=== PATIENT | female | born 1960 | race Caucasian/White ===

== ENCOUNTER 2017-02-25 14:14 | Observation (INO) ==
[2017-02-25] MEDS ORDERED: 0.9 % Sodium Chloride 1,000 ML IVC ONE (14:30)
--- NOTE | 2017-02-25 14:36 | Emergency Department Note ---
Disposition Clinical Impression: Urinary tract infection Disposition: Admitted As Inpatient Condition: Good Time of Disposition: 15:52 Female Urogenital HPI - General Chief complaint: ED Urogenital-Female Stated complaint: UTI, been on oral abx Time Seen by Provider: 02/25/17 14:20 Source: patient Mode of arrival: ambulatory Limitations: no limitations Nursing Notes Reviewed: Yes Vital Signs Reviewed: Yes - History of Present Illness HPI Narrative: Patient presents to the ED with the chief complaint of urinary tract infection. states that she has had a urinary tract infection since October 2016. She has seen her primary care physician, Dr. Elkins and has also seen her OB/ TAN ROOM SUPERVISOR, Dr. Bush. States that she has been on multiple rounds of oral antibiotics and still has urinary tract and section symptoms. She states that her ROOFING CONTRACTOR called her yesterday after urinalysis and told her to go to the ER to be admitted for IV antibiotics. She went to her primary care physician who told her to come to the ER. We did not receive a call from her ROOFING CONTRACTOR or primary care physician about this patient. However, the patient insists that she was sent over for admission. She states that none of her symptoms are new and this is been ongoing but they are continuing to get worse. She has pain that is radiating to her lower back bilaterally. She has decreased urine that is dark in color. She also has dysuria and urgency. No fever or chills. Has been having headaches off and on as well as feeling shaky, but this is no change from her baseline. No chest pain or shortness of breath. Some nausea but no vomiting. Does have some lower abdominal pain. She has had multiple abdominal surgeries for perforated colon and cholecystectomy. States that it is not the type of pain. - Related Data Home Medications Medication Instructions Recorded Confirmed Advair 250-50 Diskus 08/04/15 08/04/15 Albuterol Sulfate 08/04/15 08/04/15 Gabapentin 08/04/15 08/04/15 Inhalers 08/04/15 08/04/15 Valium 08/04/15 08/04/15 Zoloft 08/04/15 08/04/15 Previous Rx's Medication Instructions Recorded PredniSONE [Prednisone] 50 mg PO DAILY #5 tablet 08/04/15 Guaifenesin [Mucinex] 1,200 mg PO BID #14 tab.er.12h 11/27/16 Levofloxacin [Levaquin] 500 mg PO DAILY #5 tablet 11/27/16 Promethazine/Codeine 5 ml PO Q6HR PRN #60 ml 11/27/16 [Phenergan/Codeine] Allergies Allergy/AdvReac Type Severity Reaction Status Date / Time cephalexin Allergy Rash Verified 08/04/15 12:23 Loracarbef [From Lorabid] Allergy Rash Verified 08/04/15 12:23 All systems ED: reviewed and negative except as stated. Gastrointestinal: Reports: abdominal pain, nausea. Denies: vomiting, diarrhea Genitourinary: Reports: urgency, dysuria, frequency. Denies: discharge Musculoskeletal: Reports: back pain Integumentary: Denies: rash Neurological: Reports: headache Endocrine: Reports: fatigue Past Medical History - Past Medical History Attestation: Yes The following information was validated with the patient. Source: patient Medical history: Reports: COPD, hyperlipidemia Surgical history: Reports: herniorrhaphy, hysterectomy, other - Social History Smoking Status: Current every day smoker Smokeless Tobacco Status: No Alcohol use: Reports: none Drug use: Reports: none Physical Exam - General Limitations: no limitations General appearance: alert, in no apparent distress - Head Head exam: atraumatic, normocephalic, normal inspection - Eye Eye exam: Present: normal appearance, PERRL, EOMI - ENT ENT exam: mucous membranes dry - Neck Neck exam: Present: normal inspection, full ROM, trachea midline - Chest Chest inspection: Present: normal inspection, symmetric chest wall rise - Respiratory Respiratory exam: Present: normal lung sounds bilaterally - Cardiovascular Cardiovascular exam: Present: regular rate, normal rhythm, normal heart sounds - Abdominal Exam Abdominal exam: Present: soft, tenderness, distention, diminished bowel sounds. Absent: guarding, rebound Abdominal tenderness: Present: diffuse (lower quadrants), mild, moderate - Extremities Exam Extremities exam: Present: normal inspection, full ROM, normal capillary refill. Absent: tenderness, pedal edema - Back Exam Back exam: Present: normal inspection, full ROM. Absent: tenderness - Neurological Exam Neurological exam: Present: alert, oriented X3 - Psychiatric Psychiatric exam: Present: anxious - Skin Skin exam: Present: warm, dry, intact, normal color Course Course Narrative: 56 year old female presenting with recurrent UTI. Multiple failed outpatient antibiotics. States her ROOFING CONTRACTOR and primary care physician sent her over to be admitted that we have not received any treatment medication from them. We will check labs, urinalysis and CT her belly due to distention and tenderness. Disposition pending. Urine his back and does appear to be infected. Spoke with hospitalist for admission and they will determine antibiotics. I am very underwhelmed with the patient's exam and history. However, per her physician's request. We will admit her for observation and IV antibiotics Vital Signs Temperature 98.4 F 02/25/17 14:17 Pulse Rate 100 02/25/17 14:17 Respiratory Rate 14 02/25/17 14:17 Blood Pressure 138/86 02/25/17 14:17 O2 Sat by Pulse Oximetry 98 02/25/17 14:17 Temperature 98.4 F 02/25/17 14:17 Pulse Rate 100 02/25/17 14:17 Respiratory Rate 16 02/25/17 15:40 Blood Pressure 122/82 02/25/17 15:40 O2 Sat by Pulse Oximetry 98 02/25/17 14:17 Oxygen Delivery Oxygen Delivery Room Air Urogenital-Female - Lab Data Result diagrams: 02/25/17 14:40 02/25/17 14:40 Lab Results 02/25/17 02/25/17 02/25/17 Range/Units 14:40 14:40 14:40 WBC 13.2 H (4.3-11.1) K/mcL RBC 4.29 (3.82-4.97) M/mcL Hgb 13.2 (11.5-15.4) g/dL Hct 39.9 (35.3-44.9) % MCV 93.0 (83.0-100.0) fL MCH 30.8 (28.0-33.3) pg MCHC 33.1 (31.6-35.5) g/dL RDW 12.8 (11.5-14.5) % Plt Count 213 (140-400) K/mcL MPV 10.7 (9.4-12.4) fL Immature Gran % 0.5 (0-4) % Seg Neutrophils % 74.0 % Lymphocytes % 19.6 % Monocytes % 5.1 % Eosinophils % 0.6 % Basophils % 0.2 % Neutrophils # 9.7 H (1.6-8.9) K/mcL Lymphocytes # 2.6 (0.6-4.6) K/mcL Monocytes # 0.7 (0.0-1.3) K/mcL Eosinophils # 0.1 (0.0-0.6) K/mcL Basophils # 0.0 (0.0-0.2) K/mcL Sodium 137 (136-145) mEq/L Potassium 3.3 L (3.5-4.5) mEq/L Chloride 106 (98-109) mEq/L Carbon Dioxide 22 (19-29) mEq/L BUN 8 (7-20) mg/dL Creatinine 0.89 (0.57-1.11) mg/dL Est GFR ( Amer) > 60 (> 60) Est GFR (Non-Af Amer) > 60 (> 60) BUN/Creatinine Ratio 9 (6-26) Glucose 138 H (70-99) mg/dL Calculated Osmolality 285 (280-300) Calcium 9.5 (8.6-10.8) mg/dL Total Bilirubin 0.4 (0.2-1.2) mg/dL Direct Bilirubin 0.1 (0.0-0.5) mg/dL Indirect Bilirubin 0.3 (0.0-1.2) mg/dL AST 14 (5-34) Units/L ALT 12 (0-55) Units/L Alkaline Phosphatase 72 (38-126) Units/L Serum Total Protein 6.5 (6.0-8.3) g/dL Albumin 4.2 (3.5-5.0) g/dL Globulin 2.3 L (2.4-3.5) g/dL Albumin/Globulin Ratio 1.8 (1.1-2.2) Lipase 51 (8-78) Units/L Urine Color (Yellow) Urine Clarity (Clear) Urine pH (5.0-8.0) pH Units Ur Specific [place] (1.010-1.025) Urine Protein (Neg-Trace) mg/dL Urine Glucose (UA) (Normal) mg/dL Urine Ketones (Negative) mg/dL Urine Blood (Negative) Urine Nitrite (Negative) Urine Bilirubin (Negative) Urine Urobilinogen (Normal) mg/dL Ur Leukocyte Esterase (Negative) Urine Microscopic RBC (0-3) per hpf Urine Microscopic WBC (0-3) per hpf Ur Squamous Epith Cells (None-Few) per lpf Urine Bacteria (None-Few) per hpf Hyaline Casts (None-Few) per lpf Ur Culture Indicated? (NO) 02/25/17 Range/Units 14:42 WBC (4.3-11.1) K/mcL RBC (3.82-4.97) M/mcL Hgb (11.5-15.4) g/dL Hct (35.3-44.9) % MCV (83.0-100.0) fL MCH (28.0-33.3) pg MCHC (31.6-35.5) g/dL RDW (11.5-14.5) % Plt Count (140-400) K/mcL MPV (9.4-12.4) fL Immature Gran % (0-4) % Seg Neutrophils % % Lymphocytes % % Monocytes % % Eosinophils % % Basophils % % Neutrophils # (1.6-8.9) K/mcL Lymphocytes # (0.6-4.6) K/mcL Monocytes # (0.0-1.3) K/mcL Eosinophils # (0.0-0.6) K/mcL Basophils # (0.0-0.2) K/mcL Sodium (136-145) mEq/L Potassium (3.5-4.5) mEq/L Chloride (98-109) mEq/L Carbon Dioxide (19-29) mEq/L BUN (7-20) mg/dL Creatinine (0.57-1.11) mg/dL Est GFR ( Amer) (> 60) Est GFR (Non-Af Amer) (> 60) BUN/Creatinine Ratio (6-26) Glucose (70-99) mg/dL Calculated Osmolality (280-300) Calcium (8.6-10.8) mg/dL Total Bilirubin (0.2-1.2) mg/dL Direct Bilirubin (0.0-0.5) mg/dL Indirect Bilirubin (0.0-1.2) mg/dL AST (5-34) Units/L ALT (0-55) Units/L Alkaline Phosphatase (38-126) Units/L Serum Total Protein (6.0-8.3) g/dL Albumin (3.5-5.0) g/dL Globulin (2.4-3.5) g/dL Albumin/Globulin Ratio (1.1-2.2) Lipase (8-78) Units/L Urine Color Yellow (Yellow) Urine Clarity Clear (Clear) Urine pH 6.5 (5.0-8.0) pH Units Ur Specific [place] 1.006 L (1.010-1.025) Urine Protein Negative (Neg-Trace) mg/dL Urine Glucose (UA) Normal (Normal) mg/dL Urine Ketones Negative (Negative) mg/dL Urine Blood Negative (Negative) Urine Nitrite Positive A (Negative) Urine Bilirubin Negative (Negative) Urine Urobilinogen Normal (Normal) mg/dL Ur Leukocyte Esterase Large H (Negative) Urine Microscopic RBC 0-3 (0-3) per hpf Urine Microscopic WBC 15-30 H (0-3) per hpf Ur Squamous Epith Cells None Seen (None-Few) per lpf Urine Bacteria Many H (None-Few) per hpf Hyaline Casts None Seen (None-Few) per lpf Ur Culture Indicated? YES A (NO)
--- NOTE | 2017-02-25 14:36 | Emergency Department Note ---
Disposition Clinical Impression: Urinary tract infection Disposition: Admitted As Inpatient Condition: Good General Adult HPI - General Chief complaint: ED Urogenital-Female Stated complaint: UTI, been on oral abx Time Seen by Provider: 02/25/17 14:20 Source: patient Limitations: no limitations - History of Present Illness Pain Scale: 7 - Related Data Home Medications Medication Instructions Recorded Confirmed CloNIDine Patch [Catapres-TTS] 0.1 mg TD QWEEK 02/25/17 02/25/17 Diazepam [Valium] 5 mg PO BID 02/25/17 02/25/17 Levothyroxine [Synthroid] 88 mcg PO 0630 02/25/17 02/25/17 [place] Carbonate 300 mg PO HS 02/25/17 02/25/17 Ropinirole HCl [Requip] 2 mg PO HS 02/25/17 02/25/17 TraZODone 50 mg PO HS 02/25/17 02/25/17 Valacyclovir [Valtrex] 500 mg PO DAILY 02/25/17 02/25/17 Allergies Allergy/AdvReac Type Severity Reaction Status Date / Time cephalexin Allergy Swelling Verified 02/25/17 15:58 of Lip/Tongue/Throat Loracarbef [From Lorabid] Allergy Rash Verified 02/25/17 15:58 Past Medical History - Past Medical History Medical history: Reports: COPD, hyperlipidemia Surgical history: Reports: herniorrhaphy, hysterectomy, other - Social History Smoking Status: Current every day smoker Smokeless Tobacco Status: No Alcohol use: Reports: none Drug use: Reports: none Physical Exam - General Limitations: no limitations General appearance: alert, in no apparent distress Course Vital Signs Temperature 98.4 F 02/25/17 14:17 Pulse Rate 100 02/25/17 14:17 Respiratory Rate 14 02/25/17 14:17 Blood Pressure 138/86 02/25/17 14:17 O2 Sat by Pulse Oximetry 98 02/25/17 14:17 Temperature 97.4 F L 02/25/17 16:19 Pulse Rate 67 02/25/17 16:19 Respiratory Rate 18 02/25/17 16:19 Blood Pressure 109/69 02/25/17 16:19 O2 Sat by Pulse Oximetry 96 02/25/17 16:30 Oxygen Delivery Oxygen Delivery Room Air Medical Decision Making - Lab Data Result diagrams: 02/25/17 14:40 02/25/17 14:40 Lab Results 02/25/17 02/25/17 02/25/17 Range/Units 14:40 14:40 14:40 WBC 13.2 H (4.3-11.1) K/mcL RBC 4.29 (3.82-4.97) M/mcL Hgb 13.2 (11.5-15.4) g/dL Hct 39.9 (35.3-44.9) % MCV 93.0 (83.0-100.0) fL MCH 30.8 (28.0-33.3) pg MCHC 33.1 (31.6-35.5) g/dL RDW 12.8 (11.5-14.5) % Plt Count 213 (140-400) K/mcL MPV 10.7 (9.4-12.4) fL Immature Gran % 0.5 (0-4) % Seg Neutrophils % 74.0 % Lymphocytes % 19.6 % Monocytes % 5.1 % Eosinophils % 0.6 % Basophils % 0.2 % Neutrophils # 9.7 H (1.6-8.9) K/mcL Lymphocytes # 2.6 (0.6-4.6) K/mcL Monocytes # 0.7 (0.0-1.3) K/mcL Eosinophils # 0.1 (0.0-0.6) K/mcL Basophils # 0.0 (0.0-0.2) K/mcL Sodium 137 (136-145) mEq/L Potassium 3.3 L (3.5-4.5) mEq/L Chloride 106 (98-109) mEq/L Carbon Dioxide 22 (19-29) mEq/L BUN 8 (7-20) mg/dL Creatinine 0.89 (0.57-1.11) mg/dL Est GFR ( Amer) > 60 (> 60) Est GFR (Non-Af Amer) > 60 (> 60) BUN/Creatinine Ratio 9 (6-26) Glucose 138 H (70-99) mg/dL Calculated Osmolality 285 (280-300) Calcium 9.5 (8.6-10.8) mg/dL Total Bilirubin 0.4 (0.2-1.2) mg/dL Direct Bilirubin 0.1 (0.0-0.5) mg/dL Indirect Bilirubin 0.3 (0.0-1.2) mg/dL AST 14 (5-34) Units/L ALT 12 (0-55) Units/L Alkaline Phosphatase 72 (38-126) Units/L Serum Total Protein 6.5 (6.0-8.3) g/dL Albumin 4.2 (3.5-5.0) g/dL Globulin 2.3 L (2.4-3.5) g/dL Albumin/Globulin Ratio 1.8 (1.1-2.2) Lipase 51 (8-78) Units/L Urine Color (Yellow) Urine Clarity (Clear) Urine pH (5.0-8.0) pH Units Ur Specific [place] (1.010-1.025) Urine Protein (Neg-Trace) mg/dL Urine Glucose (UA) (Normal) mg/dL Urine Ketones (Negative) mg/dL Urine Blood (Negative) Urine Nitrite (Negative) Urine Bilirubin (Negative) Urine Urobilinogen (Normal) mg/dL Ur Leukocyte Esterase (Negative) Urine Microscopic RBC (0-3) per hpf Urine Microscopic WBC (0-3) per hpf Ur Squamous Epith Cells (None-Few) per lpf Urine Bacteria (None-Few) per hpf Hyaline Casts (None-Few) per lpf Ur Culture Indicated? (NO) 02/25/17 Range/Units 14:42 WBC (4.3-11.1) K/mcL RBC (3.82-4.97) M/mcL Hgb (11.5-15.4) g/dL Hct (35.3-44.9) % MCV (83.0-100.0) fL MCH (28.0-33.3) pg MCHC (31.6-35.5) g/dL RDW (11.5-14.5) % Plt Count (140-400) K/mcL MPV (9.4-12.4) fL Immature Gran % (0-4) % Seg Neutrophils % % Lymphocytes % % Monocytes % % Eosinophils % % Basophils % % Neutrophils # (1.6-8.9) K/mcL Lymphocytes # (0.6-4.6) K/mcL Monocytes # (0.0-1.3) K/mcL Eosinophils # (0.0-0.6) K/mcL Basophils # (0.0-0.2) K/mcL Sodium (136-145) mEq/L Potassium (3.5-4.5) mEq/L Chloride (98-109) mEq/L Carbon Dioxide (19-29) mEq/L BUN (7-20) mg/dL Creatinine (0.57-1.11) mg/dL Est GFR ( Amer) (> 60) Est GFR (Non-Af Amer) (> 60) BUN/Creatinine Ratio (6-26) Glucose (70-99) mg/dL Calculated Osmolality (280-300) Calcium (8.6-10.8) mg/dL Total Bilirubin (0.2-1.2) mg/dL Direct Bilirubin (0.0-0.5) mg/dL Indirect Bilirubin (0.0-1.2) mg/dL AST (5-34) Units/L ALT (0-55) Units/L Alkaline Phosphatase (38-126) Units/L Serum Total Protein (6.0-8.3) g/dL Albumin (3.5-5.0) g/dL Globulin (2.4-3.5) g/dL Albumin/Globulin Ratio (1.1-2.2) Lipase (8-78) Units/L Urine Color Yellow (Yellow) Urine Clarity Clear (Clear) Urine pH 6.5 (5.0-8.0) pH Units Ur Specific [place] 1.006 L (1.010-1.025) Urine Protein Negative (Neg-Trace) mg/dL Urine Glucose (UA) Normal (Normal) mg/dL Urine Ketones Negative (Negative) mg/dL Urine Blood Negative (Negative) Urine Nitrite Positive A (Negative) Urine Bilirubin Negative (Negative) Urine Urobilinogen Normal (Normal) mg/dL Ur Leukocyte Esterase Large H (Negative) Urine Microscopic RBC 0-3 (0-3) per hpf Urine Microscopic WBC 15-30 H (0-3) per hpf Ur Squamous Epith Cells None Seen (None-Few) per lpf Urine Bacteria Many H (None-Few) per hpf Hyaline Casts None Seen (None-Few) per lpf Ur Culture Indicated? YES A (NO) Attestation Statement - Attestation Attestation: I examined this patient and my medical decision-making was reviewed with the CALL CENTER SUPPORT REPRESENTATIVE/PA/Advanced Practice Nurse/Resident Physician. I agree with the documented findings, disposition and treatment plan as described except to the extent set forth below. Face to face time provided Patient presents the emergency department with urinary symptoms. Recent urine culture grew out Escherichia coli. Culture and sensitivity reviewed by me. Patient does not appear toxic on exam. Plan of care and management discussed by me with the resident physician Dr. Curtis
[2017-02-25 14:52] LABS: Basophils % 0.2 %; Eosinophils # 0.1 K/mcL (0.0-0.6); Eosinophils % 0.6 %; Hematocrit 39.9 % (35.3-44.9); Hemoglobin 13.2 g/dL (11.5-15.4); Immature Granulocytes % 0.5 % (0-4); Lymphocytes # 2.6 K/mcL (0.6-4.6); Lymphocytes % 19.6 %; Mean Corpuscular HGB Conc 33.1 g/dL (31.6-35.5); Mean Corpuscular Hemoglobin 30.8 pg (28.0-33.3); Mean Platelet Volume 10.7 fL (9.4-12.4); Monocytes # 0.7 K/mcL (0.0-1.3); Monocytes % 5.1 %; Neutrophils # 9.7 K/mcL (1.6-8.9); Platelet Count 213 K/mcL (140-400); Red Blood Count 4.29 M/mcL (3.82-4.97); Red Cell Distribution Width 12.8 % (11.5-14.5)
[2017-02-25 14:55] LABS: Bilirubin,Urine Negative (Negative); Blood,Urine Negative (Negative); Clarity,Urine Clear (Clear); Color,Urine Yellow (Yellow); Glucose,Urine (UA) Normal (Normal); Ketones,Urine Negative (Negative); Leukocyte Esterase,Urine Large (Negative); Nitrite,Urine Positive (Negative); PH,Urine 6.5 pH Units (5.0-8.0); Protein,Urine Negative (Neg-Trace); Specific Gravity,Urine 1.006 (1.010-1.025); Urobilinogen,Urine Normal (Normal)
[2017-02-25 14:57] LABS: Bacteria,Urine Many per hpf (None-Few); Hyaline Casts,Urine None Seen per lpf (None-Few); RBC,Urine 0-3 per hpf (0-3); Squamous Epithelial Cell,Urine None Seen per lpf (None-Few); WBC,Urine 15-30 per hpf (0-3)
[2017-02-25] MEDS ORDERED: *HR* Morphine 2 MG/ML SYRINGE IVP ONE (14:58)
[2017-02-25] MEDS ORDERED: Ondansetron 4 MG/2 ML VIAL IVP ONE (14:58)
[2017-02-25 15:05] LABS: Alanine Aminotransferase 12 Units/L (0-55); Albumin 4.2 g/dL (3.5-5.0); Albumin/Globulin Ratio 1.8 (1.1-2.2); Alkaline Phosphatase 72 Units/L (38-126); Aspartate Amino Transferase 14 Units/L (5-34); BUN/Creatinine Ratio 9 (6-26); Bilirubin,Direct 0.1 mg/dL (0.0-0.5); Bilirubin,Indirect 0.3 mg/dL (0.0-1.2); Bilirubin,Total 0.4 mg/dL (0.2-1.2); Blood Urea Nitrogen 8 mg/dL (7-20); Calcium 9.5 mg/dL (8.6-10.8); Carbon Dioxide 22 mEq/L (19-29); Chloride 106 mEq/L (98-109); Globulin 2.3 g/dL (2.4-3.5); Glucose 138 mg/dL (70-99); Osmolality,Calculated 285 (280-300); Potassium 3.3 mEq/L (3.5-4.5); Sodium 137 mEq/L (136-145); Total Protein 6.5 g/dL (6.0-8.3); eGFR For African Americans > 60 (> 60); eGFR For Non-African Americans > 60 (> 60)
[2017-02-25] MEDS ORDERED: Naloxone 0.4 MG/ML INJ IVP PRN (21:19)
--- NOTE | 2017-02-25 21:29 | Internal Med History&Physical ---
<Rivas Bridges - Last Filed: 02/25/17 22:51> Date of Encounter: 02/25/17 Time of Encounter: 21:19 Assessment and Plan (1) Urinary tract infection Current visit: Yes Status: Chronic -UA shows nitrates, white blood cells, culture pending. -We will admit and treat with IV antibiotic Unysyn. Patient last sensitivity susceptible to Unasyn. Patient states throat swelling adverse reaction to cephalosporins. Patient denies reaction to Unasyn. States that she has taken medication previously without any adverse reaction. -CT abd/pelvis looks like bladder is distended. Will order bladder scan. Consider in and out cath. -4 UA cultures since 12/12 all showing E Coli. -Patient admits to flank pain. Not very impressive on physical exam. no fever, white blood cells on UA. Pyelonephritis low on Differential. -Patient states she "has a 2 tubes coming off of her L kidney", discovered on ultrasound many years ago. Cant find said utrasound in [facility] Records. Will order to evaluate possible reason for recurrent UTI. Plan -Regular diet -No IV fluids unless patient not drinking enough water -IV Abx, unasyn q6h -Bladder scan -Retroperitoneal Ultrasound Qualifiers: Urinary tract infection type: acute cystitis Hematuria presence: without hematuria Qualified Code(s): N30.00 - Acute cystitis without hematuria (2) Suprapubic abdominal pain Current visit: Yes Status: Acute -Patient saying excruciating suprapubic and back pain. -Reevaluated patient later in the night. Patient was noted to be bending/ storing away her personal items in the room drawer, talking on the phone at the same time, not in apparent distress. Ambulatory without assistance. 4 min later sat on edge of bed stating that she was in excruciating pain and that ibuprofen hasn't helped and morphine helps -From my observation she does not need narcotics for pain relief. Cont ibuprofen. Internal Medicine - H&P: HPI Chief complaint: Dysuria for 5 months Admitted From: Emergency Dept Plans for Post Hospital Care: Home History of present illness: Ms. Duran is a 56 year old female, PMH bipolar, depression, "double ureter", admitted for UTI. She states that Dr. Bush, an OBGYN at [facility] called her up personally and told her to be admitted for UTI. Patient complains of superpubic pain, dysuria, hesitancy for the past 5 months. Has received oral antibiotics within the past month to treat her UTI, but does not recall the name. Started to have flank pain that began a left side 3 weeks ago, now noticed on the right side. Admits to nausea and headache. Denies blurry vision, fever, vomiting, chest pain, shortness of breath, problems with her bowels. Denies ultrasound for kidney evaluation. Past Med Surg Social Fam HX - Past Medical History Medical history: COPD, hyperlipidemia, thyroid disease Psychiatric history: bipolar, depression - Past Surgical History Surgical History: cholecystectomy, herniorrhaphy, hysterectomy, other (hernia x5 over in RUQ. Mesh placed. ) - Social History Smoking Status: Current every day smoker Smokeless Tobacco Status: No Alcohol use: none Drug use: none Internal Medicine - H&P: Meds CloNIDine Patch [Catapres-TTS] 0.1 mg TD QWEEK 02/25/17 [History] Diazepam [Valium] 5 mg PO BID 02/25/17 [History] Levothyroxine [Synthroid] 88 mcg PO 0630 02/25/17 [History] [place] Carbonate 300 mg PO HS 02/25/17 [History] Ropinirole HCl [Requip] 2 mg PO HS 02/25/17 [History] TraZODone 50 mg PO HS 02/25/17 [History] Valacyclovir [Valtrex] 500 mg PO DAILY 02/25/17 [History] Allergies cephalexin Allergy (Verified 02/25/17 15:58) Swelling of Lip/Tongue/Throat Loracarbef [From Lorabid] Allergy (Verified 02/25/17 15:58) Rash All Systems PM: A 10-system review of systems was performed and is negative for pertinent findings except as documented above in the HPI. - Constitutional Constitutional: no chills, no excessive sweating, no fatigue, no fever(s) - EENT Eyes: no change in vision, no discharge, no pain, no photophobia - Cardiovascular Cardiovascular ROS IM: no chest pain, no diaphoresis, no dyspnea, no lightheadedness, no palpitations, no syncope - Respiratory Respiratory: no cough, no dyspnea, no wheezing, no excessive phlegm production - Gastrointestinal Gastrointestinal: as per HPI - Genitourinary Genitourinary: dysuria, flank pain, urinary hesitancy, no hematuria, no urinary frequency, no urinary incontinence, no urinary urgency - Neurological Neurological ROS: tremor(s), no confusion, no convulsions, no focal weakness, no numbness, no tingling - Constitutional Vitals: Temp Pulse Resp BP Pulse Ox 98.3 F 62 16 106/69 98 02/25/17 19:14 02/25/17 19:14 02/25/17 19:14 02/25/17 19:14 02/25/17 19:14 General appearance: Present: A&O X 3, no acute distress, answers questions appropriately - Head Head exam: Present: atraumatic, normocephalic - Eye Eye exam: Present: PERRL, conjuntiva pink, sclera anicteric Pupils: Present: PERRL - Neck Neck exam general surgery: Present: supple, trachea midline. Absent: lymphadenopathy - Respiratory Respiratory exam: Present: CTAB. Absent: accessory muscle use, rales, rhonchi, wheezes - Cardiovascular Cardiovascular exam: Present: RRR, +S1, +S2. Absent: diastolic murmur, gallop, rubs, systolic murmur - GI/Abdominal GI/Abdominal exam: Present: distended (mildly ), tenderness, no peritoneal signs. Absent: firm, guarding - Other Additional findings: Very Mild flank tenderness on L. not appreciated on R. Internal Med - H&P Results - Labs CBC & Chem 7: 02/25/17 14:40 02/25/17 14:40 <Kary Collier - Last Filed: 02/26/17 03:53> Date of Encounter: 02/26/17 Internal Medicine - H&P: HPI History of present illness: Ms. Duran is a 56 year old female All Systems PM: A 10-system review of systems was performed and is negative for pertinent findings except as documented above in the HPI. - Constitutional Vitals: Temp Pulse Resp BP Pulse Ox 97.6 F 61 20 131/68 96 02/26/17 00:21 02/26/17 00:21 02/26/17 00:21 02/26/17 00:21 02/26/17 00:21 Internal Med - H&P Results - Labs CBC & Chem 7: 02/25/17 14:40 02/25/17 14:40
[2017-02-25] MEDS: Ondansetron 4 MG/2 ML VIAL IVP PRN (21:36)
[2017-02-25] MEDS: Ibuprofen 400 MG TABLET PO PRN (21:39)
[2017-02-25] MEDS: Potassium Chloride Elixir 20 MEQ/15 ML UDC PO SCH (21:57)
[2017-02-25] MEDS ORDERED: CloNIDine Patch 0.1 MG PATCH (WEEKLY) TD SCH (22:45)
[2017-02-25] MEDS: diazePAM 5 MG TABLET PO SCH (23:06)
[2017-02-25] MEDS: Lithium Carbonate 300 MG CAPSULE PO SCH (23:06)
[2017-02-25] MEDS: traZODone 50 MG TABLET PO SCH (23:06)
[2017-02-25] MEDS: Ampicillin/Sulbactam 3,000 MG in 0.9 % Sodium Chloride Mini Bag 100 ML IVPB SCH (23:13)
[2017-02-26] MEDS: *HR* Heparin 5,000 UNIT/ML VIAL SQ SCH ×2 (06:49→18:12)
[2017-02-26] MEDS: Ampicillin/Sulbactam 3,000 MG in 0.9 % Sodium Chloride Mini Bag 100 ML IVPB SCH ×4 (06:50→23:32)
[2017-02-26] MEDS: valACYclovir 500 MG TABLET PO SCH (08:51)
[2017-02-26] MEDS: diazePAM 5 MG TABLET PO SCH ×2 (08:51→21:04)
[2017-02-26] MEDS: Potassium Chloride Elixir 20 MEQ/15 ML UDC PO SCH (08:51)
[2017-02-26] MEDS: Ondansetron 4 MG/2 ML VIAL IVP PRN ×3 (10:58→21:03)
[2017-02-26] MEDS: Ibuprofen 400 MG TABLET PO PRN (11:00)
[2017-02-26] MEDS ORDERED: Ibuprofen 400 MG TABLET PO PRN (11:17)
[2017-02-26] MEDS: Acetaminophen 325 MG TABLET PO PRN (13:42)
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
[2017-02-26] MEDS: *HR* HYDROcodone/Acet 5/325 mg TABLET PO PRN ×2 (17:05→23:33)
--- NOTE | 2017-02-26 18:20 | Urology - Consult Note ---
Date of Encounter: 02/26/17 Time of Encounter: 18:18 - Assessment and Plan (1) Recurrent UTI (urinary tract infection) Current Visit: Yes Status: Acute Assessment and plan: will need to complete current course of abx as last culture basically olson sensitive. will check bladder scan after next void. will f/u tomorrow with bladder scan results. Urology CN:HPI Consult date: 02/26/17 Reason for consult Urology: Other (recurrent uti) Requesting physician: Elisa Veloz History of present illness: Daksha is a 56 y/o female with history of multiple culture positive uti's. The patient was tx'd as an outpt and failed tx and thus was brought into the hospital for iv abx. The patient states that she is feeling better. STill with some left lower back discomfort. patient has had a tony/bso. some question of a duplicated system on the left side, but no hydro is noted on the recent CT scan. Past Med Surg Social Fam HX - Past Medical History Medical history: COPD, hyperlipidemia, thyroid disease Psychiatric history: bipolar, depression - Past Surgical History Surgical History: cholecystectomy, herniorrhaphy, hysterectomy, other (hernia x5 over in RUQ. Mesh placed. ) - Social History Smoking Status: Current every day smoker Smokeless Tobacco Status: No Alcohol use: none Drug use: none Medications and Allergies CloNIDine Patch [Catapres-TTS] 0.1 mg TD QWEEK 02/25/17 [History] Diazepam [Valium] 5 mg PO BID 02/25/17 [History] Levothyroxine [Synthroid] 88 mcg PO 0630 02/25/17 [History] [place] Carbonate 300 mg PO HS 02/25/17 [History] Ropinirole HCl [Requip] 2 mg PO HS 02/25/17 [History] TraZODone 50 mg PO HS 02/25/17 [History] Valacyclovir [Valtrex] 500 mg PO DAILY 02/25/17 [History] Sertraline [Zoloft] 100 mg PO DAILY 02/26/17 [History] Allergies cephalexin Allergy (Verified 02/25/17 15:58) Swelling of Lip/Tongue/Throat Loracarbef [From Lorabid] Allergy (Verified 02/25/17 15:58) Rash Review of Systems - Constitutional no chills - EENT Nose, mouth and throat: no dizziness - Cardiovascular no chest pain - Respiratory no cough - Genitourinary Genitourinary: as per HPI - Neurological other (+ tremors) Exam Initial Vital Signs Temp Pulse Resp BP Pulse Ox 98.4 F 100 14 138/86 98 02/25/17 14:17 02/25/17 14:17 02/25/17 14:17 02/25/17 14:17 02/25/17 14:17 - General physical appearance Present: well developed - Eyes Present: PERRL - ENT Present: normal nares - Neck Present: no masses - Respiratory Present: normal respiratory effort - Cardiovascular Cardiovascular exam IM: RRR - Abdomen Abdomen: Present: soft Urology Results - Labs 02/25/17 14:40 02/25/17 14:40 Abnormal lab results WBC 13.2 K/mcL (4.3-11.1) H 02/25/17 14:40 Neutrophils # 9.7 K/mcL (1.6-8.9) H 02/25/17 14:40 Potassium 3.3 mEq/L (3.5-4.5) L 02/25/17 14:40 Glucose 138 mg/dL (70-99) H 02/25/17 14:40 Globulin 2.3 g/dL (2.4-3.5) L 02/25/17 14:40 Ur Specific [place] 1.006 (1.010-1.025) L 02/25/17 14:42 Urine Nitrite Positive (Negative) A 02/25/17 14:42 Ur Leukocyte Esterase Large (Negative) H 02/25/17 14:42 Urine Microscopic WBC 15-30 per hpf (0-3) H 02/25/17 14:42 Urine Bacteria Many per hpf (None-Few) H 02/25/17 14:42 Ur Culture Indicated? YES (NO) A 02/25/17 14:42 All other labs normal. - Imaging CT scan - abdomen: image reviewed CT scan - pelvis: image reviewed Consult Discharge Plan - Plan Referrals: Karina Elkins MD [Primary Care Provider] -
[2017-02-26] MEDS ORDERED: rOPINIRole 1 MG TABLET PO SCH (21:00)
[2017-02-26] MEDS: traZODone 50 MG TABLET PO SCH (21:04)
[2017-02-26] MEDS: Lithium Carbonate 300 MG CAPSULE PO SCH (21:04)
[2017-02-27 04:42] LABS: Basophils % 0.4 %; Eosinophils # 0.3 K/mcL (0.0-0.6); Eosinophils % 3.8 %; Hematocrit 38.8 % (35.3-44.9); Hemoglobin 12.8 g/dL (11.5-15.4); Immature Granulocytes % 0.3 % (0-4); Lymphocytes # 2.8 K/mcL (0.6-4.6); Lymphocytes % 37.8 %; Mean Corpuscular Hemoglobin 31.9 pg (28.0-33.3); Mean Corpuscular Volume 96.8 fL (83.0-100.0); Mean Platelet Volume 11.3 fL (9.4-12.4); Monocytes # 0.5 K/mcL (0.0-1.3); Monocytes % 7.2 %; Neutrophils # 3.7 K/mcL (1.6-8.9); Platelet Count 179 K/mcL (140-400); Red Blood Count 4.01 M/mcL (3.82-4.97); Red Cell Distribution Width 12.8 % (11.5-14.5); Segmented Neutrophils % 50.5 %
[2017-02-27 04:56] LABS: BUN/Creatinine Ratio 8 (6-26); Blood Urea Nitrogen 7 mg/dL (7-20); Calcium 9.2 mg/dL (8.6-10.8); Carbon Dioxide 26 mEq/L (19-29); Chloride 108 mEq/L (98-109); Glucose 93 mg/dL (70-99); Osmolality,Calculated 288 (280-300); Sodium 140 mEq/L (136-145); eGFR For African Americans > 60 (> 60); eGFR For Non-African Americans > 60 (> 60)
[2017-02-27 04:57] LABS: Potassium 4.6 mEq/L (3.5-4.5)
[2017-02-27] MEDS: *HR* HYDROcodone/Acet 5/325 mg TABLET PO PRN (06:52)
[2017-02-27] MEDS: Ampicillin/Sulbactam 3,000 MG in 0.9 % Sodium Chloride Mini Bag 100 ML IVPB SCH ×2 (06:53→12:19)
--- NOTE | 2017-02-27 07:14 | Urology Progress Note ---
Date of Encounter: 02/27/17 Time of Encounter: 07:11 - Assessment and Plan (1) Recurrent UTI (urinary tract infection) Current Visit: Yes Status: Acute Assessment and plan: likely related to incomplete emptying. do not recommend indwelling cath at this time. patient scheduled on 03/19 for urodynamic evaluation in the office. recommend to keep patient on keflex 250mg po daily until then as a prophylactic abx. this would be started after completion of current abx regimen. Progress Note Narrative: Daksha is a 56 y/o female with history of recurrent symptomatic utis. Th epatient had a PVR of 300ml last night and was straight cath'd once. feels better after straight cath. Objective Initial Vital Signs Temp Pulse Resp BP Pulse Ox 98.4 F 100 14 138/86 98 02/25/17 14:17 02/25/17 14:17 02/25/17 14:17 02/25/17 14:17 02/25/17 14:17 - General physical appearance Present: well developed - Abdomen Present: soft - Labs 02/27/17 04:22 02/27/17 04:22 Diabetes panel 02/27/17 Range/Units 04:22 Sodium 140 (136-145) mEq/L Potassium 4.6 H D (3.5-4.5) mEq/L Chloride 108 (98-109) mEq/L Carbon Dioxide 26 (19-29) mEq/L BUN 7 (7-20) mg/dL Creatinine 0.86 (0.57-1.11) mg/dL Glucose 93 (70-99) mg/dL Calcium 9.2 (8.6-10.8) mg/dL Calcium panel 02/27/17 Range/Units 04:22 Calcium 9.2 (8.6-10.8) mg/dL Pituitary panel 02/27/17 Range/Units 04:22 Sodium 140 (136-145) mEq/L Potassium 4.6 H D (3.5-4.5) mEq/L Chloride 108 (98-109) mEq/L Carbon Dioxide 26 (19-29) mEq/L BUN 7 (7-20) mg/dL Creatinine 0.86 (0.57-1.11) mg/dL Glucose 93 (70-99) mg/dL Calcium 9.2 (8.6-10.8) mg/dL Adrenal panel 02/27/17 Range/Units 04:22 Sodium 140 (136-145) mEq/L Potassium 4.6 H D (3.5-4.5) mEq/L Chloride 108 (98-109) mEq/L Carbon Dioxide 26 (19-29) mEq/L BUN 7 (7-20) mg/dL Creatinine 0.86 (0.57-1.11) mg/dL Glucose 93 (70-99) mg/dL Calcium 9.2 (8.6-10.8) mg/dL Consult Discharge Plan - Plan Referrals: Karina Elkins MD [Primary Care Provider] -
[2017-02-27] MEDS: *HR* Heparin 5,000 UNIT/ML VIAL SQ SCH (07:40)
[2017-02-27] MEDS: valACYclovir 500 MG TABLET PO SCH (07:41)
[2017-02-27] MEDS: Potassium Chloride Elixir 20 MEQ/15 ML UDC PO SCH (07:41)
[2017-02-27] MEDS: diazePAM 5 MG TABLET PO SCH (07:41)
[2017-02-27 11:22] VITALS: BP 126/75
[2017-02-27] MEDS ORDERED: Primidone 50 MG TABLET PO SCH (15:00)
[2017-02-27] MEDS: Acetaminophen 325 MG TABLET PO PRN (15:03)
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
== END 2017-02-27 16:30 | disposition home or self-care (01) ==
LOC: EMEROO 14:14 → 3ANU 14:14
PROVIDERS: ADMIT Hospitalist; ATTEND Internal Medicine

== ENCOUNTER 2018-02-02 11:46 | Inpatient (IN) ==
--- NOTE | 2018-02-02 13:48 | Internal Med History&Physical ---
Date of Encounter: 02/02/18 Time of Encounter: 13:42 Assessment and Plan (1) COPD (chronic obstructive pulmonary disease) Current visit: Yes Status: Acute Chronic with wheezing on exam was started on DuoNeb when necessary no need for steroid Qualifiers: COPD type: emphysema Emphysema type: unspecified Qualified Code(s): J43.9 - Emphysema, unspecified (2) Hyperlipidemia Current visit: Yes Status: Chronic Chronic recheck in a.m. Qualifiers: Hyperlipidemia type: pure hypercholesterolemia Qualified Code(s): E78.00 - Pure hypercholesterolemia, unspecified; E78.0 - Pure hypercholesterolemia (3) Smoking Current visit: Yes Status: Chronic (4) Recurrent UTI (urinary tract infection) Current visit: No Status: Acute Recurrent and persistent UTI probably due to underlying bladder dysfunction will start Unasyn consult cardiology as well on the infection disease (5) Bipolar depression Current visit: No Status: Chronic Chronic resume home medication (6) Hypothyroidism Current visit: No Status: Chronic Chronic resume home medication and check TSH in a.m. Qualifiers: Hypothyroidism type: unspecified Qualified Code(s): E03.9 - Hypothyroidism , unspecified Internal Medicine - H&P: HPI Chief complaint: dysurea Admitted From: Emergency Dept Plans for Post Hospital Care: Home History of present illness: Ms. Duran is a 57 year old female Patient with history of COPD, high cholesterol, thyroid disease, smoking history. Patient was admitted from [facility] due to symptomatic UTI that is resistant to multiple antibiotics. Patient has been treated multiple times with several antibiotic but continued to have recurrent symptoms has underlying bladder dysfunction of incomplete bladder emptying requires self catheterization 3-4 times a day she is having symptoms of dysuria , burning on urination was seen by Dr. pierson today UA apparently consistent with UTI and because of multiple antibiotic resistance patient been admitted for IV antibiotic treatment she was treated last year in February with Unasyn . will restart that at this point I will consult ID for more optimal management she also reports some chills but no fever on exam she has bilateral wheezing from her underlying smoking and COPD but not in distress most of urine cultures in past gew E coli Past Med Surg Social Fam HX - Past Medical History Medical history: COPD, hyperlipidemia, thyroid disease Psychiatric history: bipolar, depression - Past Surgical History Surgical History: cholecystectomy, herniorrhaphy, hysterectomy, other - Social History Smoking Status: Current every day smoker Smokeless Tobacco Status: No Alcohol use: none Drug use: none - Family History Mother Living Status: Still Living Hx Family Cardiac Disorders: Yes (heart stents HTN) Hx Family Respiratory Disorders: No Hx Family Cancer: Yes (bone cancer) Hx Family GI Disorders: No Hx Family Genitourinary Disorders: No Hx Family Endocrine Disorder: No Hx Family Musculoskeletal Disorders: Yes (RA) Hx Family Neuromuscular Disorders: No Hx Family Neurologic Disorders: No Hx Family HEENT Disorders: No Hx Family Autoimmune Disorders: No Hx Family Reproductive Disorders: Yes (Hyster) Hx Family Psychosocial Disorders: No Hx Family Medical Disorders: No Internal Medicine - H&P: Meds CloNIDine Patch [Catapres-Tts] 0.1 mg TD QWEEK 02/25/17 [History] [place] Carbonate 600 mg PO HS 02/25/17 [History] Ropinirole HCl [Requip] 2 mg PO HS 02/25/17 [History] diazePAM [Valium] 5 mg PO BID 02/25/17 [History] traZODone [TraZODone] 100 - 200 mg PO HS 02/25/17 [History] valACYclovir [Valtrex] 1 gm PO DAILY 02/25/17 [History] Sertraline [Zoloft] 100 mg PO DAILY 02/26/17 [History] Albuterol Sulfate [Proair Hfa] 2 puff IH Q6H PRN 02/27/17 [History] Cyclobenzaprine [Flexeril] 10 mg PO TID 02/27/17 [History] Estradiol [Estrace] 1 appl VG QWEEK 02/27/17 [History] Lidocaine Patch [Lidoderm 5% patch] 1 patch TP DAILY 02/27/17 [History] Loratadine [Allergy Relief] 10 mg PO DAILY PRN 02/27/17 [History] Losartan Potassium [Cozaar] 50 mg PO DAILY 02/27/17 [History] Omeprazole [PriLOSEC] 40 mg PO DAILY 02/27/17 [History] Ondansetron HCl [Zofran] 4 mg PO DAILY PRN 02/27/17 [History] Primidone [Mysoline] 50 mg PO BID 02/27/17 [History] Promethazine [Phenergan] 25 mg PO BID PRN 02/27/17 [History] Levothyroxine Sodium 75 mcg PO DAILY 02/02/18 [History] Sulfamethoxazole/Trimethoprim [Sulfamethoxazole-Tmp Ss Tablet] 1 tab PO DAILY [History] 3 Allergy/AdvReac Type Severity Reaction Status Date / Time cephalexin Allergy Swelling Verified 02/25/17 15:58 of Lip/Tongue/Throat Loracarbef [From Lorabid] Allergy Rash Verified 02/25/17 15:58 All Systems PM: A 10-system review of systems was performed and is negative for pertinent findings except as documented above in the HPI. - Constitutional Constitutional: no chills, no fever(s), no night sweats - EENT Eyes: no change in vision, no discharge, no pain, no photophobia Ears: no ear discharge, no ear pain, no tinnitus Nose, mouth and throat: no dysphagia, no nasal discharge, no neck pain, no sore throat - Cardiovascular Cardiovascular ROS IM: dyspnea on exertion - Respiratory Respiratory: no cough, no dyspnea, no wheezing, no excessive phlegm production - Gastrointestinal Gastrointestinal: no abdominal pain, no diarrhea, no hematemesis, no hematochezia, no melena, no nausea, no vomiting - Genitourinary Genitourinary: dysuria - Constitutional Vitals: Temp Pulse Resp BP Pulse Ox 98.6 F 60 15 114/78 96 02/02/18 12:33 02/02/18 12:33 02/02/18 12:33 02/02/18 12:33 02/02/18 12:33 - Head Head exam: Present: atraumatic, normocephalic - Eye Eye exam: Present: PERRL, conjuntiva pink, sclera anicteric Pupils: Present: PERRL - Neck Neck exam general surgery: Present: supple, trachea midline. Absent: lymphadenopathy - Respiratory Respiratory exam: Present: CTAB. Absent: accessory muscle use, rales, rhonchi, wheezes - Cardiovascular Cardiovascular exam: Present: RRR, +S1, +S2. Absent: diastolic murmur, gallop, rubs, systolic murmur - GI/Abdominal GI/Abdominal exam: Present: normal bowel sounds, soft, no peritoneal signs. Absent: distended, tenderness - Extremities Exam Extremities exam: Present: warm, radial pulses palpable and symmetrical. Absent : calf tenderness, cyanotic, pedal edema - Neurological Exam Neurological exam: Present: CN II-XII intact, oriented X3, no focal deficits. Absent: pronater drift, facial droop, speech deficit - Skin Skin exam: Present: dry, intact
[2018-02-02] MEDS ORDERED: Acetaminophen 325 MG TABLET PO PRN (13:52)
[2018-02-02] MEDS ORDERED: traMADol 50 MG TABLET PO PRN (13:52)
[2018-02-02] MEDS ORDERED: Naloxone 0.4 MG/ML INJ IVP PRN (13:52)
[2018-02-02] MEDS ORDERED: Loratadine 10 MG TABLET PO PRN (13:55)
[2018-02-02 14:54] LABS: Hematocrit 40.1 % (35.3-44.9); Hemoglobin 13.4 g/dL (11.5-15.4); Mean Corpuscular HGB Conc 33.4 g/dL (31.6-35.5); Mean Corpuscular Hemoglobin 30.7 pg (28.0-33.3); Mean Platelet Volume 11.6 fL (9.4-12.4); Platelet Count 175 K/mcL (140-400); Red Blood Count 4.36 M/mcL (3.82-4.97); Red Cell Distribution Width 12.8 % (11.5-14.5)
[2018-02-02 15:15] LABS: Alanine Aminotransferase 11 Units/L (7-52); Albumin 4.2 g/dL (3.5-5.7); Albumin/Globulin Ratio 2.5 (1.1-2.2); Alkaline Phosphatase 88 Units/L (34-104); Aspartate Amino Transferase 16 Units/L (13-39); BUN/Creatinine Ratio 14 (6-26); Bilirubin,Total 0.3 mg/dL (0.3-1.0); Blood Urea Nitrogen 10 mg/dL (6-20); Calcium 9.3 mg/dL (8.6-10.3); Carbon Dioxide 26 mEq/L (23-29); Chloride 107 mEq/L (98-107); Chol/HDL Ratio 4.5 (0-4.9); Cholesterol 156 mg/dL (< 200); Globulin 1.7 g/dL (2.4-3.5); Glucose 128 mg/dL (70-105); HDL Cholesterol 35 mg/dL (40-59); LDL Cholesterol,Calculated 88 mg/dL (0-99); Magnesium 1.5 mg/dL (1.6-2.6); Osmolality,Calculated 289 (280-300); Potassium 3.6 mEq/L (3.5-5.1); Sodium 139 mEq/L (136-145); Total Protein 5.9 g/dL (6.4-8.9); Triglycerides 167 mg/dL (< 150); eGFR For African Americans > 60 (> 60); eGFR For Non-African Americans > 60 (> 60)
[2018-02-02] MEDS: Ondansetron 4 MG/2 ML VIAL IVP PRN ×2 (15:56→21:51)
[2018-02-02] MEDS ORDERED: Ampicillin/Sulbactam 1,500 MG in 0.9 % Sodium Chloride Mini Bag 100 ML IVPB SCH (18:00)
[2018-02-02] MEDS ORDERED: Ertapenem 1,000 MG in 0.9 % Sodium Chloride Mini Bag 100 ML IVPB SCH (20:00)
[2018-02-02] MEDS: Primidone 50 MG TABLET PO SCH (20:42)
[2018-02-02] MEDS: diazePAM 5 MG TABLET PO SCH (20:42)
[2018-02-02] MEDS ORDERED: rOPINIRole 1 MG TABLET PO SCH (21:00)
[2018-02-02] MEDS ORDERED: Lithium Carbonate 300 MG CAPSULE PO SCH (21:00)
[2018-02-03] MEDS: Ondansetron 4 MG/2 ML VIAL IVP PRN (05:33)
[2018-02-03] MEDS ORDERED: *HR* Enoxaparin 40 MG/0.4 ML SYRINGE SQ SCH (06:00)
--- NOTE | 2018-02-03 07:11 | Urology - Consult Note ---
Date of Encounter: 02/03/18 Time of Encounter: 07:09 - Assessment and Plan (1) Urinary retention Current Visit: Yes Status: Acute Assessment and plan: Patient will need to continue with intermittent catheterization while in the hospital. May need to consider closed system as an outpatient for possible improving of her infections. (2) Recurrent UTI (urinary tract infection) Current Visit: No Status: Acute Assessment and plan: Patient's current infection was minimally symptomatic. She did not have any fevers or elevated WBC count. She has multiple drug allergies as well as resistance pattern in her cultures. Her most recent culture showed Escherichia coli. She is currently on Invanz for this infection. Infectious disease has been consulted and I will await their recommendations regarding her treatment plan. Patient will always have a positive culture as she has been performing intermittent catheterization. Urology CN:HPI Consult date: 02/03/18 Reason for consult Urology: Other (recurrent uti) Requesting physician: Barry Hidalgo History of present illness: Daksha is a 57-year-old female well-known to me secondary to recurrent urinary tract infections. Patient also with permanent urinary retention currently requiring intermittent catheterization 3-4 times per day. Patient has had off- and-on ability to empty her bladder on her own but more recently has been requiring the catheters. Patient was seen by her choker hooker recently had been complaining of stronger smelling urine as well as some burning. Patient denies any fevers. She has a normal WBC count. Remainder of her laboratory values were unremarkable. Past Med Surg Social Fam HX - Past Medical History Medical history: COPD, hyperlipidemia, thyroid disease Psychiatric history: bipolar, depression - Past Surgical History Surgical History: cholecystectomy, herniorrhaphy, hysterectomy, other - Social History Smoking Status: Current every day smoker Smokeless Tobacco Status: No Alcohol use: none Drug use: none - Family History Mother Living Status: Still Living Hx Family Cardiac Disorders: Yes (heart stents HTN) Hx Family Respiratory Disorders: No Hx Family Cancer: Yes (bone cancer) Hx Family GI Disorders: No Hx Family Genitourinary Disorders: No Hx Family Endocrine Disorder: No Hx Family Musculoskeletal Disorders: Yes (RA) Hx Family Neuromuscular Disorders: No Hx Family Neurologic Disorders: No Hx Family HEENT Disorders: No Hx Family Autoimmune Disorders: No Hx Family Reproductive Disorders: Yes (Hyster) Hx Family Psychosocial Disorders: No Hx Family Medical Disorders: No Medications and Allergies CloNIDine Patch [Catapres-Tts] 0.1 mg TD QWEEK 02/25/17 [History] [place] Carbonate 600 mg PO HS 02/25/17 [History] Ropinirole HCl [Requip] 2 mg PO HS 02/25/17 [History] diazePAM [Valium] 5 mg PO BID 02/25/17 [History] traZODone [TraZODone] 100 - 200 mg PO HS 02/25/17 [History] valACYclovir [Valtrex] 1 gm PO DAILY 02/25/17 [History] Sertraline [Zoloft] 100 mg PO DAILY 02/26/17 [History] Albuterol Sulfate [Proair Hfa] 2 puff IH Q6H PRN 02/27/17 [History] Cyclobenzaprine [Flexeril] 10 mg PO TID 02/27/17 [History] Estradiol [Estrace] 1 appl VG QWEEK 02/27/17 [History] Lidocaine Patch [Lidoderm 5% patch] 1 patch TP DAILY 02/27/17 [History] Loratadine [Allergy Relief] 10 mg PO DAILY PRN 02/27/17 [History] Losartan Potassium [Cozaar] 50 mg PO DAILY 02/27/17 [History] Omeprazole [PriLOSEC] 40 mg PO DAILY 02/27/17 [History] Ondansetron HCl [Zofran] 4 mg PO DAILY PRN 02/27/17 [History] Primidone [Mysoline] 50 mg PO BID 02/27/17 [History] Promethazine [Phenergan] 25 mg PO BID PRN 02/27/17 [History] Levothyroxine Sodium 75 mcg PO DAILY 02/02/18 [History] Sulfamethoxazole/Trimethoprim [Sulfamethoxazole-Tmp Ss Tablet] 1 tab PO DAILY [History] 3 Allergy/AdvReac Type Severity Reaction Status Date / Time cephalexin Allergy Swelling Verified 02/25/17 15:58 of Lip/Tongue/Throat Loracarbef [From Lorabid] Allergy Rash Verified 02/25/17 15:58 Review of Systems - Constitutional no chills, no fever(s) - EENT Nose, mouth and throat: no dizziness - Cardiovascular no chest pain, no dyspnea - Respiratory no cough, no dyspnea - Gastrointestinal no abdominal pain - Musculoskeletal no back pain - Integumentary no erythema, no swelling - Neurological no confusion - Psychiatric no depression - Allergic/Immunologic no wheezing Exam Initial Vital Signs Temp Pulse Resp BP Pulse Ox 98.6 F 60 15 114/78 96 02/02/18 12:33 02/02/18 12:33 02/02/18 12:33 02/02/18 12:33 02/02/18 12:33 General/Neuological: alert and oriented x 3 Eyes: normal pupils, non-icteric Neck: no lymphadenopathy noted, supple to touch Cardiovascular: Regular rate and rhythm, no JVD, no aortic distention on exam Respiratory: Clear to us patient bilaterally. Good air movement, no wheezing ABD: soft, nontender, no masses palpated, good bowel sounds Back: no pain on percussion bilaterally Skin: no rashes noted Musculoskeletal: normal gait, FROMx4 Urology Results - Labs 02/02/18 13:52 02/02/18 13:52 Abnormal lab results Glucose 128 mg/dL (70-105) H 02/02/18 13:52 Magnesium 1.5 mg/dL (1.6-2.6) L 02/02/18 13:52 Serum Total Protein 5.9 g/dL (6.4-8.9) L 02/02/18 13:52 Globulin 1.7 g/dL (2.4-3.5) L 02/02/18 13:52 Albumin/Globulin Ratio 2.5 (1.1-2.2) H 02/02/18 13:52 Triglycerides 167 mg/dL (< 150) H 02/02/18 13:52 VLDL Cholesterol, Calc 33 mg/dL (< 31) H 02/02/18 13:52 HDL Cholesterol 35 mg/dL (40-59) L 02/02/18 13:52 Diabetes panel 02/02/18 Range/Units 13:52 Sodium 139 (136-145) mEq/L Potassium 3.6 (3.5-5.1) mEq/L Chloride 107 (98-107) mEq/L Carbon Dioxide 26 (23-29) mEq/L BUN 10 (6-20) mg/dL Creatinine 0.70 (0.60-1.20) mg/dL Glucose 128 H (70-105) mg/dL Calcium 9.3 (8.6-10.3) mg/dL AST 16 (13-39) Units/L ALT 11 (7-52) Units/L Alkaline Phosphatase 88 (34-104) Units/L Albumin 4.2 (3.5-5.7) g/dL Triglycerides 167 H (< 150) mg/dL HDL Cholesterol 35 L (40-59) mg/dL Calcium panel 02/02/18 Range/Units 13:52 Calcium 9.3 (8.6-10.3) mg/dL Albumin 4.2 (3.5-5.7) g/dL Pituitary panel 02/02/18 Range/Units 13:52 Sodium 139 (136-145) mEq/L Potassium 3.6 (3.5-5.1) mEq/L Chloride 107 (98-107) mEq/L Carbon Dioxide 26 (23-29) mEq/L BUN 10 (6-20) mg/dL Creatinine 0.70 (0.60-1.20) mg/dL Glucose 128 H (70-105) mg/dL Calcium 9.3 (8.6-10.3) mg/dL Adrenal panel 02/02/18 Range/Units 13:52 Sodium 139 (136-145) mEq/L Potassium 3.6 (3.5-5.1) mEq/L Chloride 107 (98-107) mEq/L Carbon Dioxide 26 (23-29) mEq/L BUN 10 (6-20) mg/dL Creatinine 0.70 (0.60-1.20) mg/dL Glucose 128 H (70-105) mg/dL Calcium 9.3 (8.6-10.3) mg/dL Total Bilirubin 0.3 (0.3-1.0) mg/dL AST 16 (13-39) Units/L ALT 11 (7-52) Units/L Alkaline Phosphatase 88 (34-104) Units/L Albumin 4.2 (3.5-5.7) g/dL All other labs normal. Consult Discharge Plan - Plan Referrals: Karina Elkins MD [Primary Care Provider] -
[2018-02-03] MEDS ORDERED: valACYclovir 500 MG TABLET PO SCH (09:00)
[2018-02-03] MEDS: Primidone 50 MG TABLET PO SCH (09:50)
[2018-02-03] MEDS: diazePAM 5 MG TABLET PO SCH (09:50)
--- NOTE | 2018-02-03 11:35 | Discharge Summary ---
- NOTES TO OUTPATIENT PROVIDER Notes to Outpatient Provider: Recommend follow-up within 7-10 days Orders not resulted at time of discharge: Pending orders 02/02/18 13:58 TSH Receptor Antibody Routine 02/02/18 14:48 Culture,Blood [BC] Routine Date of Encounter: 02/03/18 Time of Encounter: 13:08 - Discharge Diagnosis (1) Recurrent UTI (urinary tract infection) Priority: Primary Status: Acute Comments: symptomatic with vaginal discharge and urinary complaints. Outpatient urine culture with multidrug resistant Escherichia coli. Initially treated Unasyn however she developed an adverse reaction so ATB switched to ertapenem. Unclear if true infection versus colonization as patient did not appear acute or toxic; no elevated WBC, aebrile. Evaluated by ID who recommended fosfomycin 3 grams PO every 3 days for 3 doses. Patient advised to call ID office Thursday and if not better ID will schedule the patient to be seen in office next week to discuss further treatment plan. (2) Urinary retention Priority: Primary Status: Acute Comments: per hx. Follows with Urology. Contributing to recurrent UTIs. Continue with intermittent catheterization (may need to consider closed system as an outpatient). Urology followed. (3) COPD (chronic obstructive pulmonary disease) Priority: Primary Status: Chronic Comments: per hx. Current smoker. Cessation advised. No evidence of exacerbation. Continue home inhalers. Qualifiers: COPD type: emphysema Emphysema type: unspecified Qualified Code(s): J43.9 - Emphysema, unspecified (4) Smoking Priority: Primary Status: Chronic Comments: current smoker. Cessation advised but not likely (5) Hypothyroidism Priority: Secondary Status: Chronic Comments: per hx. outpatient TSH 8, free T4 11. Suspect subclinical hypothyroidism with acute illness. Continue current home dose of levothyroxine. Recommend repeat TSH in 6-8 weeks with PCP. Qualifiers: Hypothyroidism type: acquired Qualified Code(s): E03.9 - Hypothyroidism, unspecified Hospital course: See assessment and plan for Hospital course Discharge discussed with: patient (Seen and examined at bedside. Patient is new to me, information obtained from chart review and patient report. Patient says she feels significantly better and would like to go home today. No dysuria , no further vaginal discharge, no fevers or chills.) - Time Spent with Patient Total time spent providing and/or coordinating discharge services: - Discharge Medications Prescriptions: Fosfomycin Tromethamine [Monurol] 3 gm PO Q72H #2 packet Home Medications: CloNIDine Patch [Catapres-Tts] 0.1 mg TD QWEEK 02/25/17 [History] [place] Carbonate 600 mg PO HS 02/25/17 [History] Ropinirole HCl [Requip] 2 mg PO HS 02/25/17 [History] diazePAM [Valium] 5 mg PO BID 02/25/17 [History] traZODone [TraZODone] 100 - 200 mg PO HS 02/25/17 [History] valACYclovir [Valtrex] 1 gm PO DAILY 02/25/17 [History] Sertraline [Zoloft] 100 mg PO DAILY 02/26/17 [History] Albuterol Sulfate [Proair Hfa] 2 puff IH Q6H PRN 02/27/17 [History] Cyclobenzaprine [Flexeril] 10 mg PO TID 02/27/17 [History] Estradiol [Estrace] 1 appl VG QWEEK 02/27/17 [History] Lidocaine Patch [Lidoderm 5% patch] 1 patch TP DAILY 02/27/17 [History] Loratadine [Allergy Relief] 10 mg PO DAILY PRN 02/27/17 [History] Losartan Potassium [Cozaar] 50 mg PO DAILY 02/27/17 [History] Omeprazole [PriLOSEC] 40 mg PO DAILY 02/27/17 [History] Ondansetron HCl [Zofran] 4 mg PO DAILY PRN 02/27/17 [History] Primidone [Mysoline] 50 mg PO BID 02/27/17 [History] Promethazine [Phenergan] 25 mg PO BID PRN 02/27/17 [History] Levothyroxine Sodium 75 mcg PO DAILY 02/02/18 [History] Fosfomycin Tromethamine [Monurol] 3 gm PO Q72H #2 packet 02/03/18 [Rx] Allergies/Adverse Reactions: 3 Allergy/AdvReac Type Severity Reaction Status Date / Time cephalexin Allergy Swelling Verified 02/25/17 15:58 of Lip/Tongue/Throat Loracarbef [From Lorabid] Allergy Rash Verified 02/25/17 15:58 Date of admission: 02/02/18 13:52 Primary care physician: Karina Elkins Consults: 02/02/18 13:59 Consult to Infectious Diseases [CONS] Routine Consulting Provider: Infectious Disease Sally Reason for Consult: recurrent uti with drug resistance Time Notified: 14:00 Call Completed: No 02/02/18 14:00 Consult to Urology [CONS] Routine Consulting Provider: Gregorio Santana Reason for Consult: bladder dysfucntion with recurrent uti Time Notified: 14:01 Call Completed: No Discharging clinician: Paula Cha Anticipated date of discharge: 02/03/18 - Constitutional Vitals: Temp Pulse Resp BP Pulse Ox 97.4 F L 59 14 95/61 95 02/03/18 11:01 02/03/18 11:01 02/03/18 11:01 02/03/18 11:01 02/03/18 11:01 General appearance: Present: A&O X 3, no acute distress - Head Head exam: Present: atraumatic, normocephalic - Eye Eye exam: Present: PERRL, conjuntiva pink, sclera anicteric Pupils: Present: PERRL - Neck Neck exam general surgery: Present: supple, trachea midline. Absent: lymphadenopathy - Respiratory Respiratory exam: Present: CTAB. Absent: accessory muscle use, rales, rhonchi, wheezes - Cardiovascular Cardiovascular exam: Present: RRR, +S1, +S2. Absent: diastolic murmur, gallop, rubs, systolic murmur - GI/Abdominal GI/Abdominal exam: Present: normal bowel sounds, soft, no peritoneal signs. Absent: distended, tenderness - Extremities Exam Extremities exam: Present: warm, radial pulses palpable and symmetrical. Absent : calf tenderness, cyanotic, pedal edema - Neurological Exam Neurological exam: Present: CN II-XII intact, oriented X3, no focal deficits. Absent: pronater drift, facial droop, speech deficit - Skin Skin exam: Present: dry, intact - Patient Status Disposition: Home, Self-Care Condition: Good Functional capacity at discharge: independent ambulation Overall status at discharge: patient is back to baseline - Discharge Instructions Instructions: Urinary Tract Infection in Women (GEN), Chronic Urinary Retention in Women (DC) Follow Up With: Karina Elkins MD [Primary Care Provider] - (Please call to make a follow -up appointment within 7-10 days) Gregorio Santana MD [Partnered Physician] - (Please call for follow-up appointment within 1-2 weeks.) - Diet and Activity Activity: increase activity as tolerated Diet: advance to your usual diet
--- NOTE | 2018-02-03 11:56 | Infectious Disease Consult ---
Date of Encounter: 02/03/18 Time of Encounter: 11:56 Assessment and Plan (1) Urinary tract infection Status: Chronic Assessment and plan: Causative organism: E. coli. Likely colonized due to prolonged SIC. Not sure that the bacteriuria is what is causing the patient's symptoms since she states her symptoms never resolve. Clinically, the patient does not appear toxic. No SIRS criteria present. Urology consulted and following. I had a long discussion with the patient and her about her clinical picture. I advised her that I am not sure if the bacteria in her urine is the source of her symptoms and she is likely colonized and she will likely always have a positive urine culture. Low index of suspicion for anatomic abnormality given that she has the same bacteria every time. Discussed methods to avoid further infections, including emptying the bladder after sexual intercourse, adequate fluid intake, daily use of probiotics to help restore normal genital thi, etc. We had a long discussion about antibiotic options. Based on susceptibilities, we could use Amoxicillin, but she had an odd reaction to Unasyn yesterday. Although it was not reflective of a true allergic reaction, we will avoid at this time and consider sending the patient for PCN allergy testing in the future. I also discussed the need to avoid IV antibiotics unless we absolutely have no other option and the patient is agreeable to this. At this point, stop Ertapenem. Start fosfomycin 3 grams PO every 3 days for 3 doses. I advised the patient to call my office on Thursday and let me know how she is doing. If not better, will schedule the patient to see me in the office next week to discuss further treatment plan. All questions were answered. The patient was very agreeable to the plan. I advised her that if she were to become toxically ill or take a turn to the worse , she should call the office or go to the ER for evaluation. Discussed with the primary team. Qualifiers: Urinary tract infection type: acute cystitis Hematuria presence: without hematuria Qualified Code(s): N30.00 - Acute cystitis without hematuria (2) Bipolar depression Status: Chronic (3) Hypothyroidism Status: Chronic Qualifiers: Hypothyroidism type: unspecified Qualified Code(s): E03.9 - Hypothyroidism , unspecified (4) COPD (chronic obstructive pulmonary disease) Status: Chronic Qualifiers: COPD type: emphysema Emphysema type: unspecified Qualified Code(s): J43.9 - Emphysema, unspecified (5) Hyperlipidemia Status: Chronic Qualifiers: Hyperlipidemia type: pure hypercholesterolemia Qualified Code(s): E78.00 - Pure hypercholesterolemia, unspecified; E78.0 - Pure hypercholesterolemia (6) Smoking Status: Chronic (7) Urinary retention Status: Acute Assessment and plan: Etiology unclear. Requires SIC. Likely contributing to the chronic bacteriuria. Urology consulted. Follows outpatient with Dr. Santana. Infectious Disease HPI - Data of Consult Patient: new to practice Consult date: 02/03/18 Requesting Physician: Barry Hidalgo MD Primary Care Provider: Karina Elkins - Consult Narrative Reason for consult: UTI History of present illness: Ms. 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 The patient was admitted to the hospital February 02 floor urinary tract infection. We are consulted February 03 for antibiotic recommendations for urinary tract infection. Briefly, the patient's a 57-year-old female with past medical history as stated above. The patient was evaluated by her [employer] back on January 25 due to a genital herpes outbreak. At that time, she has vaginal discharge and urinary complaints and a urinalysis with culture was obtained and grew Escherichia coli that is resistant to oral antibiotics except for Augmentin. She was originally placed on Macrobid when her urinalysis came back positive, but when her urine culture finalized and sensitivities were noted she was advised to come to the hospital for admission. Upon arrival to the hospital, the patient is afebrile hemodynamically stable. Laboratory results revealed a normal white blood cell count, normal renal function, and normal LFTs. Review of her urine cultures revealed positive cultures for E. coli dating back to to 2014 with progressive antibiotic resistance. The most recent strain is resistant to Bactrim, Macrobid, Fluoroquinolones. She was originally started on IV Unasyn, but had some sort of reaction that resulted in muscle spasms of the extremity where the medications infusing and it was switched over to ertapenem. We have been asked to evaluate and make further recommendations. During my exam today, the patient endorses a history as stated above. She states that she has had recurrent urinary retention ongoing for the past 3 years. She states she is able to void, but is not able to adequately empty her bladder and requires self intermittent catheterization 3-4 times a day. She states she had seen Dr. Santana about a month ago and he had placed her oral course of Bactrim for a prolonged period of time. She continued to have symptoms including dysuria, intermittent suprapubic abdominal pain, and urinary frequency that have never really gone away, even when she had a negative urine culture. She denies any fevers, chills, or rigors, but reports intermittent hot flashes that she attributes to menopause. Denies headache. Reports chronic neck pain that is at baseline. She reports chronic sinus and chest congestion and cough. Denies earache or sore throat. Reports chronic nausea and states her appetite has been poor. She denies vaginal bleeding or discharge. She denies oral thrush or skin lesions at this time. The patient lives at home with her . She reports smoking about a pack of cigarettes per week. She denies alcohol or illicit drug use. She states she is sexually active with only her . CC: Barry Hidalgo MD Past Med Surg Social Fam HX - Past Medical History Attestation: Yes The following information was validated with the patient. Source: patient, old records reviewed, nursing notes reviewed Medical history: COPD, hyperlipidemia, hypertension, thyroid disease, TIA, other (genital herpes, 3rd degree orta BUE, neuropathy, Cervical DDD, Bipolar, Urinary retention requiring SIC) Psychiatric history: bipolar, depression - Past Surgical History Surgical History: cholecystectomy, herniorrhaphy, hysterectomy, other - Social History Smoking Status: Light tobacco smoker Smokeless Tobacco Status: No Alcohol use: none Drug use: none Occupational status: employed Current living situation: Home - Independent Activity Level: Independent ambulation Recent Out of Country Travel Within the Last 8 Weeks: No Exposure or Possible Exposure to Illness During Travel: No - Family History Mother Living Status: Still Living Hx Family Cardiac Disorders: Yes (heart stents HTN) Hx Family Respiratory Disorders: No Hx Family Cancer: Yes (bone cancer) Hx Family GI Disorders: No Hx Family Genitourinary Disorders: No Hx Family Endocrine Disorder: No Hx Family Musculoskeletal Disorders: Yes (RA) Hx Family Neuromuscular Disorders: No Hx Family Neurologic Disorders: No Hx Family HEENT Disorders: No Hx Family Autoimmune Disorders: No Hx Family Reproductive Disorders: Yes (Hyster) Hx Family Psychosocial Disorders: No Hx Family Medical Disorders: No Infectious Disease-CN:Meds CloNIDine Patch [Catapres-Tts] 0.1 mg TD QWEEK 02/25/17 [History] [place] Carbonate 600 mg PO HS 02/25/17 [History] Ropinirole HCl [Requip] 2 mg PO HS 02/25/17 [History] diazePAM [Valium] 5 mg PO BID 02/25/17 [History] traZODone [TraZODone] 100 - 200 mg PO HS 02/25/17 [History] valACYclovir [Valtrex] 1 gm PO DAILY 02/25/17 [History] Sertraline [Zoloft] 100 mg PO DAILY 02/26/17 [History] Albuterol Sulfate [Proair Hfa] 2 puff IH Q6H PRN 02/27/17 [History] Cyclobenzaprine [Flexeril] 10 mg PO TID 02/27/17 [History] Estradiol [Estrace] 1 appl VG QWEEK 02/27/17 [History] Lidocaine Patch [Lidoderm 5% patch] 1 patch TP DAILY 02/27/17 [History] Loratadine [Allergy Relief] 10 mg PO DAILY PRN 02/27/17 [History] Losartan Potassium [Cozaar] 50 mg PO DAILY 02/27/17 [History] Omeprazole [PriLOSEC] 40 mg PO DAILY 02/27/17 [History] Ondansetron HCl [Zofran] 4 mg PO DAILY PRN 02/27/17 [History] Primidone [Mysoline] 50 mg PO BID 02/27/17 [History] Promethazine [Phenergan] 25 mg PO BID PRN 02/27/17 [History] Levothyroxine Sodium 75 mcg PO DAILY 02/02/18 [History] Fosfomycin Tromethamine [Monurol] 3 gm PO Q72H #2 packet 02/03/18 [Rx] 3 Allergy/AdvReac Type Severity Reaction Status Date / Time cephalexin Allergy Swelling Verified 02/25/17 15:58 of Lip/Tongue/Throat Loracarbef [From Lorabid] Allergy Rash Verified 02/25/17 15:58 All systems: reviewed and no additional remarkable complaints except as stated Exam - Constitutional Vitals: Temp Pulse Resp BP Pulse Ox 97.4 F L 59 14 95/61 95 02/03/18 11:01 02/03/18 11:01 02/03/18 11:01 02/03/18 11:01 02/03/18 11:01 General appearance: average body habitus, cooperative, no acute distress - Head Head exam: Present: atraumatic, normal inspection, normocephalic - Eye Eye exam: Present: EOMI, normal appearance, PERRL Pupils: Present: normal accommodation - ENT ENT exam: Present: mucous membranes moist - Neck Neck exam: Present: normal inspection - Respiratory Respiratory exam: Present: rhonchi (throughout). Absent: CTAB, rales, respiratory distress, wheezes - Cardiovascular Cardiovascular exam: Present: RRR, +S1, +S2 - GI/Abdominal GI/Abdominal exam: Present: normal bowel sounds, soft. Absent: distended, tenderness - Extremities Exam Extremities exam: Present: normal inspection. Absent: joint swelling, pedal edema, tenderness - Back Exam Back exam: Present: normal inspection. Absent: CVA tenderness (L), CVA tenderness (R) - Neurological Exam Neurological exam: Present: alert, oriented X3, no focal deficits - Psychiatric Psychiatric exam: Present: normal affect, normal mood - Skin Skin exam: Present: dry, intact, normal color, warm Infectious Disease CN: Results - Labs CBC & Chem 7: 02/02/18 13:52 02/02/18 13:52 Consult Discharge Plan - Plan Referrals: Karina Elkins MD [Primary Care Provider] - Prescriptions: Fosfomycin Tromethamine [Monurol] 3 gm PO Q72H #2 packet
[2018-02-03] MEDS ORDERED: Fosfomycin Tromethamine 3 GM Packet PO ONE (12:00)
[2018-02-03 14:50] VITALS: BP 100/67
== END 2018-02-03 15:17 | disposition home or self-care (01) | DRG 690 ==
LOC: 3ANU → SUATTDRO 13:52
PROVIDERS: ADMIT Internal Medicine Cardiovascular Disease; ATTEND Internal Medicine Cardiovascular Disease